=== PATIENT | female | born 1965 | race Caucasian/White ===

== ENCOUNTER 2019-05-22 07:18 | Inpatient (IN) ==
[2019-05-22 07:35] LABS: Basophils % 0.5 % (0.1-2.0); Eosinophils # 0.4 K/mm3 (0.0-0.4); Eosinophils % 4.6 % (0.1-12.0); Hematocrit 48.4 % (37.0-47.0); Lymphocytes # 4.7 K/mm3 (0.7-4.5); Lymphocytes % 52.1 % (10-50); Mean Corpuscular HGB Conc 33.2 g/dL (31.8-35.4); Mean Corpuscular Volume 93.3 fl (81-99); Mean Platelet Volume 8.4 fl (7.4-10.4); Monocytes # 0.5 K/mm3 (0.1-1.0); Monocytes % 5.5 % (1.7-9.3); Neutrophils # 3.4 K/mm3 (1.8-7.8); Neutrophils % 37.4 % (37.0-80.0); Platelet Count 328 K/mm3 (142-424); Red Blood Count 5.18 M/mm3 (4.20-5.40); Red Cell Distribution Width 12.9 % (11.5-17.5); White Blood Count 9.1 K/mm3 (4.8-10.8)
[2019-05-22 07:42] LABS: Calcium 10.2 mg/dl (8.4-10.2)
[2019-05-22 07:49] LABS: Eosinophils % 5 % (0-3); Lymphocytes % 53 % (10-50); Monocytes % 6 % (2-9); Neutrophils % 36 % (42-76); RBC Morphology Normal; Total Cells Counted 100
--- NOTE | 2019-05-22 08:31 | Emergency Department Note ---
ED Disposition Clinical Impression: NSTEMI (non-ST elevated myocardial infarction) Chest pain Qualifiers: Chest pain type: unspecified Qualified Code(s): R07.9 - Chest pain, unspecified Disposition: Admitted as Observation Condition on Discharge: Fair Time of Disposition: 11:25 - Critical Care Critical Care Time: Yes Attestation: On 05/22/19, the high probability of a clinically significant, sudden or life threatening deterioration of the following system(s) required my full and direct attention, intervention and personal management. The time I documented below is in addition to time spent performing reported procedures but includes the following listed in this critical care notation. Total Critical Care Time: 30 Vital system(s) involved:: Circulatory Failure My critical care processes included: Assessment & monitoring of V/S, Initial and Re-exams, Data Review/Interpretation, Coordinating Care, Medication Orders and management, Documentation Medical Decision Making - Jonathon Inquiry Pt receiving controlled substance: No Vital Signs: 05/22/19 07:19 05/22/19 08:32 05/22/19 08:56 Temperature 97.5 F L Temperature Source Oral Pulse Rate [Radial] 86 59 L 57 L Respiratory Rate 18 Blood Pressure [Right Arm] 154/83 H 140/89 127/95 H Blood Pressure Mean [Right Arm] 106 106 105 Blood Pressure Source [Right Arm] Automatic Cuff Automatic Cuff Blood Pressure Position [Right Arm] Sitting Sitting Sitting 02 Sat by Pulse Oximetry 100 98 99 Oxygen Delivery Method Room Air Room Air Room Air 05/22/19 09:29 Temperature Temperature Source Pulse Rate [Radial] 60 Respiratory Rate Blood Pressure [Right Arm] 123/70 Blood Pressure Mean [Right Arm] 87 Blood Pressure Source [Right Arm] Automatic Cuff Blood Pressure Position [Right Arm] Sitting 02 Sat by Pulse Oximetry 97 Oxygen Delivery Method Room Air - Lab Data Lab results reviewed: Yes: I reviewed the patient's lab results. Lab Results 05/22/19 07:26: WBC 9.1, RBC 5.18, Hgb 16.0, Hct 48.4 H, MCV 93.3, MCH 31.0, MCHC 33.2, RDW 12.9, Plt Count 328, MPV 8.4, Neut % (Auto) 37.4, Lymph % (Auto) 52.1 H, [place] % (Auto) 5.5, Eos % (Auto) 4.6, Baso % (Auto) 0.5, Neut # (Auto) 3.4, Lymph # (Auto) 4.7 H, [place] # (Auto) 0.5, Eos # (Auto) 0.4, Baso # (Auto) 0.0, Total Counted 100, Neutrophils % (Manual) 36 L, Lymphocytes % (Manual) 53 H , Monocytes % (Manual) 6, Eosinophils % (Manual) 5 H, Platelet Estimate Normal, RBC Morphology Normal 05/22/19 07:26: Sodium 139, Potassium 4.0, Chloride 101, Carbon Dioxide 28, Anion Gap 14.0, BUN 13, Creatinine 0.90, Estimated Creat Clear 71, Estimated GFR 65, Est GFR ( Amer) 79, Glucose 110 H, Calcium 10.2, Troponin I 0.02 05/22/19 07:43: Influenza Type A Ag Negative, Influenza Type B Ag Negative 05/22/19 10:08: Troponin I 2.72 H 05/22/19 10:10: Urine Color Yellow, Urine Appearance Sl cloudy, Urine pH 6.5, Ur Specific [place] 1.015, Urine Protein Negative, Urine Glucose (UA) Negative, Urine Ketones Negative, Urine Blood Negative, Urine Nitrate Negative, Urine Bilirubin Negative, Urine Urobilinogen 0.2, Ur Leukocyte Esterase Trace, Urine RBC 3-5, Urine WBC 10-20, Ur Squamous Epith Cells 10-20, Urine Bacteria 1+ Result diagrams: 05/22/19 07:26 05/22/19 07:26 Orders (Tests/Meds): ED MEDICATIONS Discontinued Medications Generic Name Dose Route Start Last Admin Trade Name Trung PRN Reason Stop Dose Admin Acetaminophen 1,000 mg 05/22/19 07:56 05/22/19 07:57 Tylenol 500mg Tablet PO 05/22/19 07:57 1,000 mg ONCE ONE Administration Aspirin 324 mg 05/22/19 10:48 05/22/19 10:52 Aspirin 81mg Chewable Tablet PO 05/22/19 10:49 324 mg ONCE ONE Administration Heparin Sodium (Porcine) 5,000 unit 05/22/19 11:01 05/22/19 11:01 Heparin Sodium 5,000 Units/Ml Vial IV 05/22/19 11:02 5,000 unit ONCE ONE Administration Ticagrelor 180 mg 05/22/19 11:01 05/22/19 11:02 Brilinta 90mg Tablet PO 05/22/19 11:02 180 mg ONCE ONE Administration ORDERS Category Date Time Status Troponin I Q3H Lab 05/22/19 13:30 Ordered Urine Culture Stat Micro 05/22/19 10:10 Received EKG Request [ECG Request by /Micah] Stat Y 05/22/19 09:56 Ordered - Radiology Data #1 Image(s): Chest Image Reviewed: Yes I reviewed the patient's radiology results R CHEST 2V CLINICAL HISTORY: pain Chest pain COMPARISON: No exams were available for comparison FINDINGS: The cardiomediastinal silhouette and pulmonary vascularity are within normal limits. The lungs are clear without infiltrates, suspicious nodules, or pleural effusions. No acute bony abnormalities. IMPRESSION: No acute findings. Dictated by: Elie Castillo MD 05/22/2019 09:57 Electronically signed by Elie Castillo MD in [place] 05/22/2019 09:57 - ECG Data Tracing #1 EKG done at 718 hours shows normal sinus rhythm with a heart rate of 78 bpm, normal P waves, normal ID interval, nonspecific ST-T changes. Downsloping of the ST segment in V2 V3. Normal axis. Tracing #2 EKG done at 1002 hrs. shows sinus bradycardia with a heart rate of 53 bpm, normal P waves, normal ID interval, normal axis, nonspecific ST-T changes. Poor R wave progression. Nonspecific ST-T changes. - Physician Consults Physician Consulted: LIZ Horan Time: 10:10 Reason -: Pt condition Comment/Response: Discussed with the cardiology on-call physician assistant activities director,Marko Batres, regarding the patient and he came to the emergency department to evaluate the patient. Plan to get the pt to the Cardiac cath. Additional Consult: Time: 10:30 Reason -: Admission, Pt condition Comment/Response: Discussed with Dr. Harrington regarding the patient and plan to get the patient admitted to the floor. - Reevaluation(s) Time: 09:30 Reevaluation #1: Patient has been stable throughout the course of stay in the emergency department. She denies having any acute pain or discomfort. Time: 10:05 Reevaluation #2: Patient has been stable while in the emergency department. Discussed the lab findings with her. Advised her that her troponin has been elevated on the second test. She seems to be having non-ST elevation NV. Plan to discuss the case with the cardiology team for cardiac cath and further evaluation. The patient is agreeable for the management plan. - ELVI Score for Non-Stemi Age of Patient: 50-59 years old Heart Rate: 70-89 bpm Systolic Blood Pressure: 140-159 mmHg Serum Creatinine: 0.80-1.19 mg/dl CHF [place] Class: I-No CHF Other Risk Factors: Elevated Cardiac Enzymes or Biomarkers Non-Stemi Risk Score: 95 General Adult HPI - General Chief complaint: PAIN Stated complaint: pain Time Seen by Provider: 05/22/19 08:19 Mode of Arrival: Ambulatory Limitations: No Limitations Description of Symptoms (Recalled from ER Triage Doc. by RN): States she is in extreme pain in her neck face back and rest of her body. states her mouth is dry. No known exposure to COVID-19 - History of Present Illness HPI narrative: 54-year-old female presents to the emergency department with chief complaint of having sudden onset generalized pain. She states she felt like she was hurting on the back of the chest and also radiating pain to the neck and to the head as well as to the upper and lower extremities. The pain was heavy and aching in nature. Pain started about 1 hours prior to arrival to the emergency department. Her blood pressure seems to be high at that time and she checked it at home. She then called her daughter and decided to come to the emergency department. She states she is feeling better right now after coming to the emergency department. The pain and discomfort was about 6-8 out of 10 earlier. Her blood pressure seems to be better in the emergency department. She has a history of hypertension. Onset (ago): hour(s) (1) Location: chest, back, upper extremity, lower extremity Severity: severe Severity scale (1-10): 7 Quality: dull Consistency: intermittent Relieving factors: none Exacerbating factors: none - Related Data Home Medications Medication Instructions Recorded Confirmed alprazolam 0.25 mg tablet 0.25 mg PO DAILY 30 Days #30 08/16/17 02/04/18 atorvastatin 10 mg tablet 10 mg PO DAILY 30 Days #30 08/16/17 02/04/18 duloxetine 60 mg capsule,delayed 60 mg PO DAILY 90 Days #90 08/16/17 02/04/18 release Aspirin [Aspir 81] 81 mg PO DAILY 02/04/18 02/04/18 Allergies Allergy/AdvReac Type Severity Reaction Status Date / Time Sulfa (Sulfonamide Allergy Verified 08/16/17 15:27 Antibiotics) [facility] History - Hepatitis A Screen Drug use history?: No High risk sexual behaviors?: No History of sexually transmitted infection?: No Currently employed?: No Childcare worker?: No Do you have indoor plumbing?: Yes Do you have electricity?: Yes Attestation statement:: This patient has been screened for Hepatitis A risk factors. I have reviewed the patient's past medical history: Yes Medical History: Reports:: Hyperlipidemia Denies:: Diabetes Mellitus Type 1, Diabetes Mellitus Type 2, Internal Pacemaker, Lung Disease, Seizures Other Medical History: Reports: Other (stroke) Other Surgeries: Yes: No Previous Surgery. No: Pacemaker - Social History Educational Level: Completed High School Smoking Status: Current every day smoker Tobacco Type: cigarettes # Packs/Day (cigarettes): 1 Alcohol Intake: never Occupational Status: other Housing: house Household Members: family Family Hx:: Cancer, Diabetes, Hypertension, Stroke ROS Obtained: Yes All systems reviewed & no additional complaints Physical Exam - General General appearance: alert, in no apparent distress, other (low mood) - Head Head exam: atraumatic, normocephalic, normal inspection - Eye Eye exam: Present: normal appearance, PERRL, EOMI - ENT ENT exam: Present: normal exam, normal oropharynx, mucous membranes moist, normal external ear exam - Neck Neck exam: Present: normal inspection, full ROM, trachea midline - Chest Chest inspection: Present: normal inspection, symmetric chest wall rise. Absent: tenderness - Respiratory Respiratory exam: Present: normal lung sounds bilaterally. Absent: respiratory distress - Cardiovascular Cardiovascular exam: Present: regular rate, normal rhythm. Absent: JVD - Abdominal Exam Abdominal exam: Present: soft, normal bowel sounds. Absent: distention, tenderness, guarding - Extremities Exam Extremities exam: Present: normal inspection, full ROM, normal capillary refill. Absent: calf tenderness - Back Exam Back exam: Present: normal inspection, full ROM. Absent: tenderness - Neurological Exam Neurological exam: Present: alert, oriented X3, CN II-XII intact - Psychiatric Psychiatric exam: Present: normal affect, normal mood - Skin Skin exam: Present: warm, dry, intact, normal color
[2019-05-22 10:17] LABS: Microscopic, Urine URINE MICROSCOPIC (MICROSCOPIC)
[2019-05-22 10:21] LABS: Appearance,Urine SL CLOUDY (Clear); Bilirubin,Urine Negative (Negative); Blood, Urine Negative (Negative); Color,Urine YELLOW (Yellow); Glucose,Urine (UA) Negative (Negative); Ketones,Urine Negative (Negative); Leukocyte Esterase,Urine TRACE (Negative); PH,Urine 6.5 (5.0-8.5); Protein,Urine Negative (Negative); Specific Gravity, Urine 1.015 (1.005-1.030); Urobilinogen,Urine 0.2 EU/dl (0.2)
[2019-05-22 10:29] LABS: Bacteria,Urine 1+ /lpf
--- NOTE | 2019-05-22 11:23 | Consult Report ---
History of Present Illness Consult date: 05/22/19 Requesting physician: Orville Harrington Consult reason: chest pain Chief complaint: Chest pain Additional Medical History:: 1. CVA, age 39 with peripheral vision affected A. workup negative per patient, daily ASA recommended 2. Tobacco use, 0.5 ppd 3. HLD, on statin 4. Allergy to sulfa 5. 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 She hasn't seen anyone regarding it recently. 6. History of colon polyps with last colonoscopy 2018. History of present illness: 54 yo WF got up to go to the bathroom this AM and noted pain in the chest, shoulders, neck and jaw with radiation into both arms. Symptoms continued for an hour prior to coming to ER. Workup in ER included troponin that was initially normal. Second troponin returned elevated and cardiology consulted. Symptoms seemed to improve after being given antacid. Currently symptoms only noted in neck and mild. Denies any N,Vomiting or diarrhea. No cough or cold symptoms. EKG's are sinus with slight ST segment depression in V3 and V4 initially of less than 1.0 mm. These have resolved on the second EKG. [facility] History Medical History: Reports:: Hyperlipidemia Denies:: Diabetes Mellitus Type 1, Diabetes Mellitus Type 2, Internal Pacemaker, Lung Disease, Seizures *Have you ever received a pneumonia vaccine?: Yes *Have you received a flu vaccine this season?: Yes Other Medical History: Reports: Other (stroke) Other Surgeries: Yes: No Previous Surgery. No: Pacemaker - *Social History Educational Level: Completed High School Smoking Status: Current every day smoker Tobacco Type: cigarettes # Packs/Day (cigarettes): 1 Alcohol Intake: never *Occupational Status:: other Housing: house Household Members: family *Travel in the last 8 weeks: None Family Hx:: Cancer, Diabetes, Hypertension, Stroke Meds Home Medications Medication Instructions Recorded Confirmed Type alprazolam 0.25 mg tablet 0.25 mg PO DAILY 30 Days #30 08/16/17 02/04/18 History atorvastatin 10 mg tablet 10 mg PO DAILY 30 Days #30 08/16/17 02/04/18 History duloxetine 60 mg capsule,delayed 60 mg PO DAILY 90 Days #90 08/16/17 02/04/18 Hi story release Aspirin [Aspir 81] 81 mg PO DAILY 02/04/18 02/04/18 History Allergies Allergy/AdvReac Type Severity Reaction Status Date / Time Sulfa (Sulfonamide Allergy Verified 08/16/17 15:27 Antibiotics) Review of Systems - Review of Systems Review of systems:: pertinent systems reviewed and negative unless documented below - *Cardiovascular Reports chest pain - *Respiratory Denies cough, Denies shortness of breath with activity - *Gastrointestinal Denies abdominal pain, Denies vomiting - *Genitourinary Denies blood in urine - *Musculoskeletal Denies joint pain, Denies back pain - *Neurologic Denies dizziness, Denies weakness Exam Vital signs and Labs for Last 24 Hours: Temp Pulse Resp BP Pulse Ox 97.5 F L 60 18 123/70 97 05/22/19 11:14 05/22/19 11:14 05/22/19 11:14 05/22/19 11:14 05/22/19 09:29 Laboratory Results - last 24 hr 05/22/19 07:26: WBC 9.1, RBC 5.18, Hgb 16.0, Hct 48.4 H, MCV 93.3, MCH 31.0, MCHC 33.2, RDW 12.9, Plt Count 328, MPV 8.4, Neut % (Auto) 37.4, Lymph % (Auto) 52.1 H, [place] % (Auto) 5.5, Eos % (Auto) 4.6, Baso % (Auto) 0.5, Neut # (Auto) 3.4, Lymph # (Auto) 4.7 H, [place] # (Auto) 0.5, Eos # (Auto) 0.4, Baso # (Auto) 0.0, Total Counted 100, Neutrophils % (Manual) 36 L, Lymphocytes % (Manual) 53 H , Monocytes % (Manual) 6, Eosinophils % (Manual) 5 H, Platelet Estimate Normal, RBC Morphology Normal 05/22/19 07:26: Sodium 139, Potassium 4.0, Chloride 101, Carbon Dioxide 28, Anion Gap 14.0, BUN 13, Creatinine 0.90, Estimated Creat Clear 71, Estimated GFR 65, Est GFR ( Amer) 79, Glucose 110 H, Calcium 10.2, Troponin I 0.02 05/22/19 07:43: Influenza Type A Ag Negative, Influenza Type B Ag Negative 05/22/19 10:08: Troponin I 2.72 H 05/22/19 10:10: Urine Color Yellow, Urine Appearance Sl cloudy, Urine pH 6.5, Ur Specific [place] 1.015, Urine Protein Negative, Urine Glucose (UA) Negative, Urine Ketones Negative, Urine Blood Negative, Urine Nitrate Negative, Urine Bilirubin Negative, Urine Urobilinogen 0.2, Ur Leukocyte Esterase Trace, Urine RBC 3-5, Urine WBC 10-20, Ur Squamous Epith Cells 10-20, Urine Bacteria 1+ I & O for Last 24 hours: Intake & Output 05/19/19 05/20/19 05/21/19 05/22/19 11:59 11:59 11:59 11:59 Weight 140 lb - *Routine HEENT Exam Head: Present: normocephalic Eye: Present: EOMI, PERRL ENT: Present: mucous membranes moist - *Routine Neck Exam Present: supple. Absent: JVD, carotid bruit - *Routine Respiratory Exam Present: CTA bilaterally. Absent: accessory muscle use, rales, rhonchi, wheezes - *Routine Cardiovascular Exam Present: RRR. Absent: murmur, gallop, rubs - *Routine Abdominal Exam Present: soft. Absent: tenderness, distended, guarding - *Routine Extremities Exam Absent: edema, calf tenderness - *Routine Neurological Exam Present: alert, oriented X3, moving all extremities Assessment and Plan (1) NSTEMI (non-ST elevated myocardial infarction) Current visit: Yes Status: Acute Category: Medical Code(s): I21.4 - Non-ST elevation (NSTEMI) myocardial infarction (2) Hyperlipidemia Current visit: Yes Status: Acute Category: Medical Code(s): E78.5 - Hyperlipidemia, unspecified (3) Tobacco use Current visit: Yes Status: Acute Category: Social Hx Code(s): Z72.0 - Tobacco use (4) Remote history of stroke Current visit: Yes Status: Acute Category: Medical Code(s): Z86.73 - Personal history of transient ischemic attack (TIA), and cerebral infarction without residual deficits - Assessment and plan all Dx Assessment and Plan for all problems:: 1. CP with elevated troponin consistent with NSTEMI. Given ASA, Brilinta, heparin and NTG paste. Proceed with C today. 2. Echo today 3. further recommendations to follow 4. Likely needs CT of head or MRI of brain to follow up on history of aneurysm.
--- NOTE | 2019-05-22 12:46 | Pharmacy Consult Notes ---
[facility] Pharmacy VTE Monitoring - Patient Demographics Admission date: 05/22/19 Report Date: 05/22/19 Time: 12:46 Allergies/Adverse Reactions: Patient Allergies Sulfa (Sulfonamide Antibiotics) Allergy (Verified 08/16/17 15:27) Height: 1.63 m Weight: 63.503 kg Patient Problems: Current Active Problems NSTEMI (non-ST elevated myocardial infarction) (Acute) Hyperlipidemia (Acute) Tobacco use (Acute) Remote history of stroke (Acute) - VTE Risk Labs: VTE Related Lab Results Hgb 16.0 g/dL (12.2-16.2) 05/22/19 07:26 Hct 48.4 % (37.0-47.0) H 05/22/19 07:26 Plt Count 328 K/mm3 (142-424) 05/22/19 07:26 BUN 13 mg/dl (7-17) 05/22/19 07:26 Creatinine 0.90 mg/dl (0.52-1.04) 05/22/19 07:26 Estimated Creat Clear 71 mL/min (50-200) 05/22/19 07:26 - Prophylaxis VTE Prophylaxis Ordered?: Yes Types of VTE Prophylaxis: TEDS Knee High, Pharmacological Location of Applied Device: Bilateral Lower Extremeties Pharmacologic Type: Other (BRILINTA) - VTE Diagnosis Confirmed Treatment or plan recommended: Continue Current Treatment
--- NOTE | 2019-05-22 13:57 | History & Physical Report ---
*Admission Date: 05/22/19 <Nancy Gillima 05/22/19 14:09> *Chief complaint: Chest pain <Nancy Gilliam 05/22/19 14:09> *History of present illness: Ms. 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 At the time she did not feel she was short of breath. She did not experience palpitations. Initial troponin I in the emergency room was normal with the second being elevated. Symptoms did improve after she was given an antacid. She had no nausea or vomiting ,cough or cold symptoms. EKG showed a sinus rhythm with a slight ST depression in V3 and V4. These did resolve on the second EKG. With the chest pain and elevated troponin consistent with a NSTEMI she was given aspirin, Brilinta, heparin and nitroglycerin paste and then had a left heart cath. Left heart cath revealed coronary artery disease and a long torturous narrow first obtuse marginal artery. Focal lesion was stented however distal to the stent was a dissection which limited distal flow. She had a normal ejection fraction with a small region wall motion abnormality. She had a normal left ventricular end-diastolic pressure. At the time of this exam patient is comfortable. She remains a little bit drowsy after the cardiac cath. <Nancy Gilliam 05/22/19 14:09> [facility] History Medical History: Reports:: Aneurysm, Hyperlipidemia Denies:: Diabetes Mellitus Type 1, Diabetes Mellitus Type 2, Internal Pacemaker, Lung Disease, Seizures <Nancy Gilliam 05/22/19 14:09> *Have you ever received a pneumonia vaccine?: Yes <Nancy Gilliam 05/22/19 14:09> *Have you received a flu vaccine this season?: Yes <Nancy Gilliam 05/22/19 14:09> Other Medical History: Reports: Other (stroke) <Nancy Gilliam 05/22/19 14:09> Other Surgeries: Yes: No Previous Surgery. No: Pacemaker <GilliamNancy 05/22/19 14:09> - *Social History Educational Level: Completed High School <Nancy Gilliam 05/22/19 14:09> Smoking Status: Current every day smoker <Nancy Gilliam 05/22/19 14:09> Tobacco Type: cigarettes <Nancy Gilliam 05/22/19 14:09> # Packs/Day (cigarettes): 1 <Nancy Gilliam 05/22/19 14:09> Alcohol Intake: never <Nancy Gilliam 05/22/19 14:09> *Occupational Status:: other <Nancy Gilliam 05/22/19 14:09> Housing: house <Nancy Gilliam 05/22/19 14:09> Household Members: family <Nancy Gilliam 05/22/19 14:09> *Travel in the last 8 weeks: None <Nancy Gilliam 05/22/19 14:09> Family Hx:: Cancer, Coronary Artery Disease, Diabetes, Hypertension, Stroke <Nancy Gilliam 05/22/19 14:09> Review of Systems - Constitutional Denies fever(s), Denies lack of energy <Nancy Gilliam 05/22/19 14:09> - Eyes Denies change in vision <Nancy Gilliam 05/22/19 14:09> - ENT Denies ear pain, Denies headache(s), Denies sore throat <Nancy Gilliam 05/22/19 14:09> - *Cardiovascular Reports chest pain, Reports chest pain at rest, Reports radiating jaw, neck or arm pain, Denies shortness of breath, Denies irregular heart rhythm, Denies rapid, pounding, or irregular heartbeat, Denies fast heart rate <Nancy Gilliam 05/22/19 14:09> - *Respiratory Denies chest congestion, Denies cough, Denies shortness of breath, Denies coughing up blood <Nancy Gilliam 05/22/19 14:09> - *Gastrointestinal Reports belching, Reports heartburn, Denies abdominal pain, Denies change in bowel habits, Denies change in stools, Denies constipation, Denies bright, red blood in stools, Denies nausea, Denies vomiting <Nancy Gilliam 05/22/19 14:09> - *Genitourinary Denies difficulty urinating <Nancy Gilliam - 05/22/19 14:09> - *Musculoskeletal Denies joint pain, Denies muscle weakness <Nancy Gilliam - 05/22/19 14:09> - *Neurologic Denies dizziness, Denies weakness <Nancy Gilliam - 05/22/19 14:09> Meds Home Medications Medication Instructions Recorded Confirmed Type alprazolam 0.25 mg tablet 0.25 mg PO HSP PRN 30 Days #30 08/16/17 05/22/19 History atorvastatin 10 mg tablet 10 mg PO HS 30 Days #30 08/16/17 05/22/19 History duloxetine 60 mg capsule,delayed 60 mg PO HS 90 Days #90 08/16/17 05/22/19 History release Aspirin [Aspir 81] 81 mg PO HS 02/04/18 05/22/19 History Montelukast Sodium 10 mg PO HS 05/22/19 05/22/19 History <LenLázaroOrville - 05/22/19 18:26> Allergies Allergy/AdvReac Type Severity Reaction Status Date / Time Sulfa (Sulfonamide Allergy Verified 05/22/19 14:18 Antibiotics) <LenOrville - 05/22/19 18:26> Exam Vital signs and Labs for Last 24 Hours: Temp Pulse Resp BP Pulse Ox 97.9 F 60 18 106/63 L 98 05/22/19 18:09 05/22/19 18:09 05/22/19 18:09 05/22/19 18:09 05/22/19 18:09 Laboratory Results - last 24 hr 05/22/19 07:26: WBC 9.1, RBC 5.18, Hgb 16.0, Hct 48.4 H, MCV 93.3, MCH 31.0, MCH C 33.2, RDW 12.9, Plt Count 328, MPV 8.4, Neut % (Auto) 37.4, Lymph % (Auto) 52.1 H, [place] % (Auto) 5.5, Eos % (Auto) 4.6, Baso % (Auto) 0.5, Neut # (Auto) 3.4, Lymph # (Auto) 4.7 H, [place] # (Auto) 0.5, Eos # (Auto) 0.4, Baso # (Auto) 0.0, Total Counted 100, Neutrophils % (Manual) 36 L, Lymphocytes % (Manual) 53 H , Monocytes % (Manual) 6, Eosinophils % (Manual) 5 H, Platelet Estimate Normal, RBC Morphology Normal 05/22/19 07:26: Sodium 139, Potassium 4.0, Chloride 101, Carbon Dioxide 28, Anion Gap 14.0, BUN 13, Creatinine 0.90, Estimated Creat Clear 71, Estimated GFR 65, Est GFR ( Amer) 79, Glucose 110 H, Calcium 10.2, Troponin I 0.02 05/22/19 07:26: D-Dimer < 100 05/22/19 07:43: Influenza Type A Ag Negative, Influenza Type B Ag Negative 05/22/19 10:08: Troponin I 2.72 H 05/22/19 10:10: Urine Color Yellow, Urine Appearance Sl cloudy, Urine pH 6.5, Ur Specific [place] 1.015, Urine Protein Negative, Urine Glucose (UA) Negative, Urine Ketones Negative, Urine Blood Negative, Urine Nitrate Negative, Urine Bilirubin Negative, Urine Urobilinogen 0.2, Ur Leukocyte Esterase Trace, Urine RBC 3-5, Urine WBC 10-20, Ur Squamous Epith Cells 10-20, Urine Bacteria 1+ 05/22/19 11:22: Activated Clotting Time 241 H* 05/22/19 11:40: Activated Clotting Time 245 H* <Orville Harrington - 05/22/19 18:26> Temp Pulse Resp BP Pulse Ox 98.7 F 54 L 16 133/71 95 05/22/19 11:23 05/22/19 13:05 05/22/19 13:05 05/22/19 13:05 05/22/19 13:05 Laboratory Results - last 24 hr 05/22/19 07:26: WBC 9.1, RBC 5.18, Hgb 16.0, Hct 48.4 H, MCV 93.3, MCH 31.0, MCHC 33.2, RDW 12.9, Plt Count 328, MPV 8.4, Neut % (Auto) 37.4, Lymph % (Auto) 52.1 H, [place] % (Auto) 5.5, Eos % (Auto) 4.6, Baso % (Auto) 0.5, Neut # (Auto) 3.4, Lymph # (Auto) 4.7 H, [place] # (Auto) 0.5, Eos # (Auto) 0.4, Baso # (Auto) 0.0, Total Counted 100, Neutrophils % (Manual) 36 L, Lymphocytes % (Manual) 53 H , Monocytes % (Manual) 6, Eosinophils % (Manual) 5 H, Platelet Estimate Normal, RBC Morphology Normal 05/22/19 07:26: Sodium 139, Potassium 4.0, Chloride 101, Carbon Dioxide 28, Anion Gap 14.0, BUN 13, Creatinine 0.90, Estimated Creat Clear 71, Estimated GFR 65, Est GFR ( Amer) 79, Glucose 110 H, Calcium 10.2, Troponin I 0.02 05/22/19 07:26: D-Dimer < 100 05/22/19 07:43: Influenza Type A Ag Negative, Influenza Type B Ag Negative 05/22/19 10:08: Troponin I 2.72 H 05/22/19 10:10: Urine Color Yellow, Urine Appearance Sl cloudy, Urine pH 6.5, Ur Specific [place] 1.015, Urine Protein Negative, Urine Glucose (UA) Negative, Urine Ketones Negative, Urine Blood Negative, Urine Nitrate Negative, Urine Bili sparks Negative, Urine Urobilinogen 0.2, Ur Leukocyte Esterase Trace, Urine RBC 3-5, Urine WBC 10-20, Ur Squamous Epith Cells 10-20, Urine Bacteria 1+ <Nancy Gilliam - 05/22/19 14:09> I & O for Last 24 hours: Intake & Output 05/19/19 05/20/19 05/21/19 05/22/19 23:59 23:59 23:59 23:59 Intake Total 0 / 0 Balance 0 / 0 Weight 140 lb 0.002 oz <Orville Harrington - 05/22/19 18:26> Intake & Output 05/20/19 05/21/19 05/22/19 05/23/19 11:59 11:59 11:59 11:59 Weight 140 lb <Nancy Gilliam - 05/22/19 14:09> Radiology Reports for the Last 24 Hours: Chest x-ray 05/22/2019 IMPRESSION: No acute findings. Heart cath 05/22/2019 IMPRESSION Coronary artery disease and a long tortuous narrow first obtuse marginal artery in which the focal lesion was stented however distal to the stent was a dissection which limited distal flow Normal ejection fraction with small regional wall motion abnormality Normal left ventricular end-diastolic pressure PLAN 1. Brilinta and aspirin for 1 year 2. Beta-blockers YASMANI inhibitors 3. Patient should remain in the hospital for 48 hours. After 48 hours an echocardiogram should be obtained 4. Supportive care 5. PRN nitroglycerin 6. PRN morphine should chest pain develop 7. Avoidance of tobacco products <[facility] 05/22/19 14:09> - Constitutional no acute distress <[facility] 05/22/19 14:09> Comments: Sleepy <[facility] 05/22/19 14:09> - *Routine HEENT Exam Head: Present: normocephalic, atraumatic <[facility] 05/22/19 14:09> Eye: Present: PERRL. Absent: conjunctival icterus, scleral injection <[facility] 05/22/19 14:09> ENT: Present: mucous membranes moist, oropharynx clear, nares patent, TM's clear bilaterally <[facility] 05/22/19 14:09> - *Routine Neck Exam Present: supple. Absent: carotid bruit, lymphadenopathy, thyromegaly <[facility] 05/22/19 14:09> - *Routine Respiratory Exam Present: CTA bilaterally (Anteriorly and posteriorly) <[facility] 05/22/19 14:09> - *Routine Cardiovascular Exam Present: RRR <[facility] 05/22/19 14:09> - *Routine Abdominal Exam Present: soft, normoactive bowel sounds. Absent: tenderness, distended <[facility] 05/22/19 14:09> - *Routine Extremities Exam Absent: edema, calf tenderness <[facility] 05/22/19 14:09> - *Routine Neurological Exam Present: alert, oriented X3 <[facility] 05/22/19 14:09> Assessment and Plan (1) NSTEMI (non-ST elevated myocardial infarction) Current visit: Yes Status: Acute Category: Medical Code(s): I21.4 - Non-ST elevation (NSTEMI) myocardial infarction (2) Hyperlipidemia Current visit: Yes Status: Acute Category: Medical Code(s): E78.5 - Hyperlipidemia, unspecified (3) Tobacco use Current visit: Yes Status: Acute Category: Social Hx Code(s): Z72.0 - Tobacco use (4) Remote history of stroke Current visit: Yes Status: Acute Category: Medical Code(s): Z86.73 - Personal history of transient ischemic attack (TIA), and cerebral infarction without residual deficits (5) CAD (coronary artery disease), [place] coronary artery Current visit: Yes Status: Acute Category: Medical Code(s): I25.10 - Atherosclerotic heart disease of [place] coronary artery without angina pectoris <Orville Harrington - 05/22/19 18:26> (1) NSTEMI (non-ST elevated myocardial infarction) Current visit: Yes Status: Acute Category: Medical Code(s): I21.4 - Non-ST elevation (NSTEMI) myocardial infarction (2) Hyperlipidemia Current visit: Yes Status: Acute Category: Medical Code(s): E78.5 - Hyperlipidemia, unspecified (3) Tobacco use Current visit: Yes Status: Acute Category: Social Hx Code(s): Z72.0 - Tobacco use (4) Remote history of stroke Current visit: Yes Status: Acute Category: Medical Code(s): Z86.73 - Personal history of transient ischemic attack (TIA), and cerebral infarction without residual deficits <Nancy Gilliam - 05/22/19 13:51> - Assessment and plan all Dx Assessment and Plan for all problems:: Saw patient, agree with above note. <Orville Harrington 05/22/19 18:26> Nitropatch added at patient request. We will continue to monitor. Cardiac meds as ordered. <Nancy Gilliam - 05/22/19 14:09>
[2019-05-23 06:51] LABS: Eosinophils # 0.3 K/mm3 (0.0-0.4); Monocytes # 0.4 K/mm3 (0.1-1.0); Neutrophils # 4.6 K/mm3 (1.8-7.8); Red Cell Distribution Width 13.1 % (11.5-17.5); White Blood Count 7.2 K/mm3 (4.8-10.8)
[2019-05-23 07:00] LABS: Basophils # 0.1 K/mm3 (0-0.2); Basophils % 0.7 % (0.1-2.0); Eosinophils % 4.4 % (0.1-12.0); Hematocrit 43.2 % (37.0-47.0); Lymphocytes # 1.9 K/mm3 (0.7-4.5); Lymphocytes % 26.3 % (10-50); Mean Corpuscular HGB Conc 33.4 g/dL (31.8-35.4); Mean Corpuscular Volume 94.5 fl (81-99); Mean Platelet Volume 8.6 fl (7.4-10.4); Monocytes % 5.1 % (1.7-9.3); Neutrophils % 63.5 % (37.0-80.0); Platelet Count 275 K/mm3 (142-424); Red Blood Count 4.57 M/mm3 (4.20-5.40)
[2019-05-23 07:01] LABS: Hemoglobin 14.4 g/dL (12.2-16.2)
[2019-05-23 07:03] LABS: Anion Gap 9.1 mEq/L (5-15)
[2019-05-23 07:04] LABS: Calcium 9.3 mg/dl (8.4-10.2)
--- NOTE | 2019-05-23 08:16 | Progress Note ---
Subjective Date: 05/23/19 Time: 08:10 Principal diagnosis: NSTEMI Interval history: 54 yo WF in bed in NAD. No chest pain overnight. Breathing comfortably. Telemetry is sinus without arrythmias. Reviewed [facility] results and questions answered. Exam Vital signs and Labs for Last 24 Hours: Temp Pulse Resp BP Pulse Ox 97.9 F 73 16 117/55 L 97 05/23/19 06:40 05/23/19 06:40 05/23/19 06:40 05/23/19 06:40 05/23/19 06:40 Laboratory Results - last 24 hr 05/22/19 07:26: D-Dimer < 100 05/22/19 10:08: Troponin I 2.72 H 05/22/19 10:10: Urine Color Yellow, Urine Appearance Sl cloudy, Urine pH 6.5, Ur Specific [place] 1.015, Urine Protein Negative, Urine Glucose (UA) Negative, Urine Ketones Negative, Urine Blood Negative, Urine Nitrate Negative, Urine Bili sparks Negative, Urine Urobilinogen 0.2, Ur Leukocyte Esterase Trace, Urine RBC 3-5, Urine WBC 10-20, Ur Squamous Epith Cells 10-20, Urine Bacteria 1+ 05/22/19 11:22: Activated Clotting Time 241 H* 05/22/19 11:40: Activated Clotting Time 245 H* 05/23/19 05:48: WBC 7.2, RBC 4.57, Hgb 14.4, Hct 43.2, MCV 94.5, MCH 31.5 H, MCHC 33.4, RDW 13.1, Plt Count 275, MPV 8.6, Neut % (Auto) 63.5, Lymph % (Auto) 26.3, [place] % (Auto) 5.1, Eos % (Auto) 4.4, Baso % (Auto) 0.7, Neut # (Auto) 4.6, Lymph # (Auto) 1.9, [place] # (Auto) 0.4, Eos # (Auto) 0.3, Baso # (Auto) 0.1 05/23/19 05:48: Sodium 137, Potassium 4.1, Chloride 106, Carbon Dioxide 26, Anion Gap 9.1, BUN 11, Creatinine 0.80, Estimated Creat Clear 84, Estimated GFR 74, Est GFR ( Amer) 90, Glucose 97, Calcium 9.3 I & O for Last 24 hours: Intake & Output 05/20/19 05/21/19 05/22/19 05/23/19 11:59 11:59 11:59 11:59 Intake Total 700 / 700 Output Total 1900 / 1900 Balance -1200 / -1200 Weight 140 lb 0.002 oz 147 lb Microbiology Reports for the Last 24 Hours: Microbiology 05/22/19 10:10 Urine,Clean Catch Urine Culture - Preliminary - *Routine HEENT Exam Head: Present: normocephalic Eye: Present: EOMI, PERRL ENT: Present: mucous membranes moist - *Routine Respiratory Exam Present: CTA bilaterally. Absent: accessory muscle use, rales, rhonchi, wheezes - *Routine Cardiovascular Exam Present: RRR. Absent: murmur, gallop, rubs - *Routine Extremities Exam Absent: edema, calf tenderness - *Routine Neurological Exam Present: alert, oriented X3, moving all extremities Progress Note: A&P (1) NSTEMI (non-ST elevated myocardial infarction) Status: Acute Current Visit: Yes (2) Hyperlipidemia Status: Acute Current Visit: Yes (3) Tobacco use Status: Acute Current Visit: Yes (4) Remote history of stroke Status: Acute Current Visit: Yes (5) CAD (coronary artery disease), [place] coronary artery Status: Acute Current Visit: Yes Assessment and Plan for All Diagnoses:: 1. NSTEMI with OM MORENA and subsequent dissection. Continue DAPT with ASA and brilinta. Echo to evaluate LVEF and will begin YASMANI and BB as BP tolerates for cardiac remodeling prevention. Continue to monitor for 48 hrs total before discharge home. 2. 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 No evaluation in several years per patient. CT of head with contrast to evaluate. 3. Tobacco use, nicotine patch in place 4. HLD, on statin therapy 5. Remote history of CVA
--- NOTE | 2019-05-23 09:01 | Progress Note ---
<Nancy Gilliam - Last Filed: 05/23/19 08:58> Internal Medicine - PN: Subj *Date: 05/23/19 *Time: 08:58 Interval history: Patient denies chest pain and shortness of breath. She has been up to the bathroom several times without difficulty. She is eating without problems. She did not sleep well but states she slept all day yesterday. She is voiding QS. Bowels have not moved. Cardiac cath results as below: IMPRESSION Coronary artery disease and a long tortuous narrow first obtuse marginal artery in which the focal lesion was stented however distal to the stent was a dissection which limited distal flow Normal ejection fraction with small regional wall motion abnormality Normal left ventricular end-diastolic pressure PLAN 1. Brilinta and aspirin for 1 year 2. Beta-blockers YASMANI inhibitors 3. Patient should remain in the hospital for 48 hours. After 48 hours an echocardiogram should be obtained 4. Supportive care 5. PRN nitroglycerin 6. PRN morphine should chest pain develop 7. Avoidance of tobacco products 8. Cardiac rehabilitation Exam Vital signs and Labs for Last 24 Hours: Temp Pulse Resp BP Pulse Ox 97.9 F 73 16 117/55 L 97 05/23/19 06:40 05/23/19 06:40 05/23/19 06:40 05/23/19 06:40 05/23/19 06:40 Laboratory Results - last 24 hr 05/22/19 07:26: D-Dimer < 100 05/22/19 10:08: Troponin I 2.72 H 05/22/19 10:10: Urine Color Yellow, Urine Appearance Sl cloudy, Urine pH 6.5, Ur Specific [place] 1.015, Urine Protein Negative, Urine Glucose (UA) Negative, Urine Ketones Negative, Urine Blood Negative, Urine Nitrate Negative, Urine Bilirubin Negative, Urine Urobilinogen 0.2, Ur Leukocyte Esterase Trace, Urine RBC 3-5, Urine WBC 10-20, Ur Squamous Epith Cells 10-20, Urine Bacteria 1+ 05/22/19 11:22: Activated Clotting Time 241 H* 05/22/19 11:40: Activated Clotting Time 245 H* 05/23/19 05:48: WBC 7.2, RBC 4.57, Hgb 14.4, Hct 43.2, MCV 94.5, MCH 31.5 H, MCHC 33.4, RDW 13.1, Plt Count 275, MPV 8.6, Neut % (Auto) 63.5, Lymph % (Auto) 26.3, [place] % (Auto) 5.1, Eos % (Auto) 4.4, Baso % (Auto) 0.7, Neut # (Auto) 4.6, Lymph # (Auto) 1.9, [place] # (Auto) 0.4, Eos # (Auto) 0.3, Baso # (Auto) 0.1 05/23/19 05:48: Sodium 137, Potassium 4.1, Chloride 106, Carbon Dioxide 26, Anion Gap 9.1, BUN 11, Creatinine 0.80, Estimated Creat Clear 84, Estimated GFR 74, Est GFR ( Amer) 90, Glucose 97, Calcium 9.3 I & O for Last 24 hours: Intake & Output 05/20/19 05/21/19 05/22/19 05/23/19 11:59 11:59 11:59 11:59 Intake Total 700 / 700 Output Total 1900 / 1900 Balance -1200 / -1200 Weight 140 lb 0.002 oz 147 lb Microbiology Reports for the Last 24 Hours: Microbiology 05/22/19 10:10 Urine,Clean Catch Urine Culture - Preliminary - Constitutional no acute distress - *Routine Respiratory Exam Present: CTA bilaterally (Anteriorly and posteriorly) - *Routine Cardiovascular Exam Present: RRR Comments: Monitor shows sinus rhythm - *Routine Abdominal Exam Present: soft, normoactive bowel sounds. Absent: tenderness, distended - *Routine Extremities Exam Present: pulses intact. Absent: edema, calf tenderness - *Routine Neurological Exam Present: alert, oriented X3 Assessment and Plan (1) NSTEMI (non-ST elevated myocardial infarction) Current visit: Yes Status: Acute Category: Medical Code(s): I21.4 - Non-ST elevation (NSTEMI) myocardial infarction (2) Hyperlipidemia Current visit: Yes Status: Acute Category: Medical Code(s): E78.5 - Hyperlipidemia, unspecified (3) Tobacco use Current visit: Yes Status: Acute Category: Social Hx Code(s): Z72.0 - Tobacco use (4) Remote history of stroke Current visit: Yes Status: Acute Category: Medical Code(s): Z86.73 - Personal history of transient ischemic attack (TIA), and cerebral infarction without residual deficits (5) CAD (coronary artery disease), [place] coronary artery Current visit: Yes Status: Acute Category: Medical Code(s): I25.10 - Atherosclerotic heart disease of [place] coronary artery without angina pectoris - Assessment and plan all Dx Assessment and Plan for all problems:: Patient plans to not smoke. Medication changes as per cardiology. We will continue to monitor. <Orville Harrington - Last Filed: 05/23/19 09:49> Internal Medicine - PN: Subj *Date: 05/23/19 *Time: 09:49 Exam Vital signs and Labs for Last 24 Hours: Temp Pulse Resp BP Pulse Ox 98.5 F 62 18 122/69 95 05/23/19 08:00 05/23/19 09:00 05/23/19 09:00 05/23/19 09:00 05/23/19 09:00 Laboratory Results - last 24 hr 05/22/19 07:26: D-Dimer < 100 05/22/19 10:08: Troponin I 2.72 H 05/22/19 10:10: Urine Color Yellow, Urine Appearance Sl cloudy, Urine pH 6.5, Ur Specific [place] 1.015, Urine Protein Negative, Urine Glucose (UA) Negative, Urine Ketones Negative, Urine Blood Negative, Urine Nitrate Negative, Urine Bilirubin Negative, Urine Urobilinogen 0.2, Ur Leukocyte Esterase Trace, Urine RBC 3-5, Urine WBC 10-20, Ur Squamous Epith Cells 10-20, Urine Bacteria 1+ 05/22/19 11:22: Activated Clotting Time 241 H* 05/22/19 11:40: Activated Clotting Time 245 H* 05/23/19 05:48: WBC 7.2, RBC 4.57, Hgb 14.4, Hct 43.2, MCV 94.5, MCH 31.5 H, MCHC 33.4, RDW 13.1, Plt Count 275, MPV 8.6, Neut % (Auto) 63.5, Lymph % (Auto) 26.3, [place] % (Auto) 5.1, Eos % (Auto) 4.4, Baso % (Auto) 0.7, Neut # (Auto) 4.6, Lymph # (Auto) 1.9, [place] # (Auto) 0.4, Eos # (Auto) 0.3, Baso # (Auto) 0.1 05/23/19 05:48: Sodium 137, Potassium 4.1, Chloride 106, Carbon Dioxide 26, Anion Gap 9.1, BUN 11, Creatinine 0.80, Estimated Creat Clear 84, Estimated GFR 74, Est GFR ( Amer) 90, Glucose 97, Calcium 9.3 I & O for Last 24 hours: Intake & Output 05/20/19 05/21/19 05/22/19 05/23/19 23:59 23:59 23:59 23:59 Intake Total 0 / 460 700 / 700 Output Total 1000 / 1000 900 / 900 Balance -1000 / -540 -200 / -200 Weight 140 lb 0.002 oz 147 lb Microbiology Reports for the Last 24 Hours: Microbiology 05/22/19 10:10 Urine,Clean Catch Urine Culture - Preliminary Assessment and Plan (1) NSTEMI (non-ST elevated myocardial infarction) Current visit: Yes Status: Acute Category: Medical Code(s): I21.4 - Non-ST elevation (NSTEMI) myocardial infarction (2) Hyperlipidemia Current visit: Yes Status: Acute Category: Medical Code(s): E78.5 - Hyperlipidemia, unspecified (3) Tobacco use Current visit: Yes Status: Acute Category: Social Hx Code(s): Z72.0 - Tobacco use (4) Remote history of stroke Current visit: Yes Status: Acute Category: Medical Code(s): Z86.73 - Personal history of transient ischemic attack (TIA), and cerebral infarction without residual deficits (5) CAD (coronary artery disease), [place] coronary artery Current visit: Yes Status: Acute Category: Medical Code(s): I25.10 - Atherosclerotic heart disease of [place] coronary artery without angina pectoris - Assessment and plan all Dx Assessment and Plan for all problems:: Saw patient, agree with above note.
--- NOTE | 2019-05-24 08:33 | Progress Note ---
Internal Medicine - PN: Subj *Date: 05/24/19 *Time: 08:30 Interval history: Patient with no new complaints today, did not sleep well last night. Exam Vital signs and Labs for Last 24 Hours: Temp Pulse Resp BP Pulse Ox 98.3 F 67 20 106/46 L 95 05/24/19 08:00 05/24/19 08:00 05/24/19 08:00 05/24/19 08:00 05/24/19 08:00 I & O for Last 24 hours: Intake & Output 05/21/19 05/22/19 05/23/19 05/24/19 23:59 23:59 23:59 23:59 Intake Total 0 / 460 1180 / 1180 480 / 480 Output Total 1000 / 1000 1600 / 1600 Balance -1000 / -540 -420 / -420 480 / 480 Weight 140 lb 0.002 oz 147 lb 132 lb 7 oz Microbiology Reports for the Last 24 Hours: Microbiology 05/22/19 10:10 Urine,Clean Catch Urine Culture - Final Multiple organisms, suggests contamination. - Constitutional no acute distress - *Routine HEENT Exam Head: Present: normocephalic Eye: Present: EOMI ENT: Present: mucous membranes moist - *Routine Neck Exam Present: supple. Absent: lymphadenopathy - *Routine Respiratory Exam Present: CTA bilaterally - *Routine Cardiovascular Exam Present: RRR - *Routine Abdominal Exam Present: soft, normoactive bowel sounds. Absent: tenderness - *Routine Extremities Exam Absent: cyanosis, clubbing, edema - *Routine Skin Exam Present: warm. Absent: rash - *Routine Neurological Exam Present: alert, oriented X3 Assessment and Plan (1) NSTEMI (non-ST elevated myocardial infarction) Current visit: Yes Status: Acute Category: Medical Code(s): I21.4 - Non-ST elevation (NSTEMI) myocardial infarction (2) Hyperlipidemia Current visit: Yes Status: Acute Category: Medical Code(s): E78.5 - Hyperlipidemia, unspecified (3) Tobacco use Current visit: Yes Status: Acute Category: Social Hx Code(s): Z72.0 - Tobacco use (4) Remote history of stroke Current visit: Yes Status: Acute Category: Medical Code(s): Z86.73 - Personal history of transient ischemic attack (TIA), and cerebral infarction without residual deficits (5) CAD (coronary artery disease), [place] coronary artery Current visit: Yes Status: Acute Category: Medical Code(s): I25.10 - Atherosclerotic heart disease of [place] coronary artery without angina pectoris - Assessment and plan all Dx Assessment and Plan for all problems:: Plan to check Echo today, possible home later today.
--- NOTE | 2019-05-24 09:36 | Progress Note ---
Subjective Date: 05/24/19 Time: 09:32 Principal diagnosis: NSTEMI Interval history: This is a 54-year-old white female who was admitted to the hospital for non-ST elevation myocardial infarction. She did undergo left cardiac catheterization and had stenting to an obtuse marginal artery with subsequent dissection of the artery. The patient is on dual antiplatelet therapy with Brilinta and aspirin. The patient was kept in the hospital for 48 hours post dissection and her hospital stay has been unremarkable. This morning she denies any chest pain or pressure. She denies any shortness of breath or edema. She denies any fever, chills, nausea, vomiting, diarrhea, PND or orthopnea. She denies any fevers or cough. Exam Vital signs and Labs for Last 24 Hours: Temp Pulse Resp BP Pulse Ox 98.3 F 67 20 106/46 L 95 05/24/19 08:00 05/24/19 08:00 05/24/19 08:00 05/24/19 08:00 05/24/19 08:00 I & O for Last 24 hours: Intake & Output 05/21/19 05/22/19 05/23/19 05/24/19 23:59 23:59 23:59 23:59 Intake Total 0 / 460 1180 / 1180 480 / 480 Output Total 1000 / 1000 1600 / 1600 Balance -1000 / -540 -420 / -420 480 / 480 Weight 140 lb 0.002 oz 147 lb 132 lb 7 oz Microbiology Reports for the Last 24 Hours: Microbiology 05/22/19 10:10 Urine,Clean Catch Urine Culture - Final Multiple organisms, suggests contamination. Narrative: Telemetry strip shows sinus rhythm with a rate of 57. - Constitutional no acute distress, average body habitus - *Routine HEENT Exam Head: Present: normocephalic, atraumatic Eye: Present: EOMI, PERRL ENT: Present: mucous membranes moist - *Routine Neck Exam Present: supple, full ROM, normal carotid upstroke. Absent: JVD, carotid bruit, lymphadenopathy - *Routine Respiratory Exam Present: CTA bilaterally - *Routine Cardiovascular Exam Present: RRR, Normal S1, Normal S2. Absent: murmur - *Routine Abdominal Exam Present: soft, normoactive bowel sounds. Absent: tenderness, distended, rebound - *Routine Extremities Exam Present: full ROM, pulses intact, normal capillary refill. Absent: cyanosis, clubbing, edema - *Routine Skin Exam Present: intact, warm. Absent: erythema, rash - *Routine Neurological Exam Present: alert, oriented X3, CN II-XII intact. Absent: sensory deficit, motor deficit Progress Note: A&P (1) NSTEMI (non-ST elevated myocardial infarction) Status: Acute Current Visit: Yes (2) CAD (coronary artery disease), [place] coronary artery Status: Acute Current Visit: Yes (3) Hyperlipidemia Status: Acute Current Visit: Yes (4) Tobacco use Status: Acute Current Visit: Yes (5) Remote history of stroke Status: Acute Current Visit: Yes Assessment and Plan for All Diagnoses:: Plan: 1. The patient was admitted to the hospital secondary to a non-STEMI and underwent left cardiac catheterization with a drug-eluting stent to the obtuse marginal. The patient had a subsequent dissection and has been in the hospital since that time for 48-hour observation. The patient's hospital stay has been unremarkable. 2. The patient will remain on dual antiplatelet therapy with Brilinta and aspirin. 3. The patient did have an echocardiogram this morning. This is currently pending. As long as her echocardiogram is normal then she will be able to go home today around 1 PM as her 48 hours will be up at that time. 4. Once the patient is ready for discharge home, she will need to go home on dual antiplatelet therapy with Brilinta and aspirin as well as metoprolol and lisinopril which she has already been started on in the hospital. She will also need to be on statin therapy which she is already on as well. 5. Coronary artery disease is present and likely stable. 6. Her blood pressure is acceptable. 7. Her LDL goal is less than 55. She is on high intensity statin. 8. Tobacco cessation is highly advised and counseled. 9. 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 CT of the brain showed nothing acute. The CT angiogram of her brain can be completed on an outpatient basis. 10. Further recommendations will be made pending the patient's response to treatment and the results of her echocardiogram later today. Thank you for the opportunity to help participate in the care of this patient.
--- NOTE | 2019-05-24 15:59 | Discharge Summary ---
General - General Admission date:: 05/22/19 Discharge date: 05/24/19 HPI HPI: Ms. Couch is a 54-year-old female with a history of previous stroke/aneurysm behind her left eye, tobacco use disorder, hyperlipidemia, who presented to [facility] emergency room after awakening with severe chest pain radiating into the shoulders, neck, jaw and down both arms. At the time she did not feel she was short of breath. She did not experience palpitations. Initial troponin I in the emergency room was normal with the second being elevated. Symptoms did improve after she was given an antacid. She had no nausea or vomiting ,cough or cold symptoms. EKG showed a sinus rhythm with a slight ST depression in V3 and V4. These did resolve on the second EKG. With the chest pain and elevated troponin consistent with a NSTEMI, she was given aspirin, Brilinta, heparin and nitroglycerin paste and then had a left heart cath. Left heart cath revealed coronary artery disease and a long torturous narrow first obtuse marginal artery. Focal lesion was stented however distal to the stent was a dissection which limited distal flow. She had a normal ejection fraction with a small region wall motion abnormality. She had a normal left ventricular end-diastolic pressure. At the time of this exam patient is comfortable. She remains a little bit drowsy after the cardiac cath. Hospital Course Hospital Course: A nitro patch was added at the patient's request. She had no further chest pain and was breathing comfortably. Telemetry showed sinus rhythm without arrhythmias. Cardiology felt she should continue aspirin and Brilinta. They ordered an echo and started her on an YASMANI and a beta-annemarie. They wanted to monitor her for 48 hours total before discharge home. The patient had no new co mplaints. An echo was done and the preliminary was normal. Cardiology did feel she could be discharged and will need to follow-up with them in the office. Objective Vital signs: Temp Pulse Resp BP Pulse Ox 98.2 F 57 L 16 106/64 L 94 L 05/24/19 12:00 05/24/19 12:00 05/24/19 12:00 05/24/19 12:00 05/24/19 12:00 Narrative: - Constitutional no acute distress Comments: Sleepy - *Routine HEENT Exam Head: Present: normocephalic, atraumatic Eye: Present: PERRL. Absent: conjunctival icterus, scleral injection ENT: Present: mucous membranes moist, oropharynx clear, nares patent, TM's clear bilaterally - *Routine Neck Exam Present: supple. Absent: carotid bruit, lymphadenopathy, thyromegaly - *Routine Respiratory Exam Present: CTA bilaterally (Anteriorly and posteriorly) - *Routine Cardiovascular Exam Present: RRR - *Routine Abdominal Exam Present: soft, normoactive bowel sounds. Absent: tenderness, distended - *Routine Extremities Exam Absent: edema, calf tenderness - *Routine Neurological Exam Present: alert, oriented X3 DS: Diagnosis - Discharge Diagnosis (1) NSTEMI (non-ST elevated myocardial infarction) Status: Acute (2) CAD (coronary artery disease), [place] coronary artery Status: Acute (3) Hyperlipidemia Status: Acute (4) Tobacco use Status: Acute (5) Remote history of stroke Status: Acute Discharge Plan - Patient Discharge Instructions ACTIVITY: Limited activity, No heavy lifting DIET: cardiac Patient Instructions: DI for Heart Attack, DI for Cardiac Catheterization, DI for Surgical Site Infection, How to Quit Smoking, Ticagrelor - Follow up Plan Follow up with: Orville Harrington MD [Staff Physician] - 06/01/19 11:15 am (please arrive 15 minutes early for appointment with for paperwork please bring insurance card ) Jose Carlos Man MD [Staff Physician] - 05/29/19 9:00 am Unknown provider or service follow up:: 05/24/19 12:29 Keep PCP appt Disposition: Home, Self-Snf Medications: Home Medications Medication Instructions Recorded Confirmed Type alprazolam 0.25 mg tablet 0.25 mg PO HSP PRN 30 Days #30 08/16/17 05/23/19 History duloxetine 60 mg capsule,delayed 60 mg PO HS 90 Days #90 08/16/17 05/23/19 History release Aspirin [Aspir 81] 81 mg PO HS 02/04/18 05/23/19 History Montelukast Sodium 10 mg PO HS 05/22/19 05/22/19 History Atorvastatin Calcium [Lipitor 40mg 80 mg PO HS #30 tab 05/24/19 Rx Tablet] Metoprolol Succinate [Toprol XL 12.5 mg PO DAILY #30 tab.er.24h 05/24/19 Rx 25mg tablet] Nicotine [Nicoderm 21mg/24hr 14 mg TD DAILYP PRN #30 patch.td24 05/24/19 Rx patch] Ticagrelor [Brilinta 90mg Tablet] 90 mg PO BID #60 tab 05/24/19 Rx lisinopriL [Zestril 2.5mg Tablet] 2.5 mg PO DAILY #30 tab 05/24/19 Rx omeprazole 40 mg capsule,delayed 40 mg PO DAILY #30 cap 05/24/19 Rx release Prescriptions/Medication Reconciliation: New Nicotine [Nicoderm 21mg/24hr patch] 14 mg TD DAILYP PRN #30 patch.td24 PRN Reason: Nicotine Cravings Metoprolol Succinate [Toprol XL 25mg tablet] 12.5 mg PO DAILY #30 tab.er.24h lisinopriL [Zestril 2.5mg Tablet] 2.5 mg PO DAILY #30 tab Ticagrelor [Brilinta 90mg Tablet] 90 mg PO BID #60 tab Atorvastatin Calcium [Lipitor 40mg Tablet] 80 mg PO HS #30 tab Continued duloxetine 60 mg capsule,delayed release 60 mg PO HS 90 Days #90 alprazolam 0.25 mg tablet 0.25 mg PO HSP PRN 30 Days #30 PRN Reason: Anxiety Aspirin [Aspir 81] 81 mg PO HS Montelukast Sodium 10 mg PO HS Discontinued atorvastatin 10 mg tablet 10 mg PO HS 30 Days #30 No Action omeprazole 40 mg capsule,delayed release 40 mg PO DAILY #30 cap - Problem Reconciliation Problems Reviewed?: Yes
--- NOTE | 2019-05-24 21:41 | Electrocardiograph Report ---
APPROVED REPORT Exam: Resting ECG HR:78 bpm ECG Measurements Heart Rate 78 AXES NH 136 P 60 QRSd 80 QRS 65 QT 390 T52 QTc 444 <Conclusion> Normal sinus rhythm Nonspecific ST abnormality Abnormal ECG Electronically signed by : Bola Peñaloza, 05/24/2019 21:40:43
--- NOTE | 2019-05-25 16:54 | Cardiology Report ---
APPROVED REPORT EXAM: Comprehensive 2D, Doppler, and color-flow Echocardiogram Spaghetti Machine Operator: Liliana Call RVT Ht: 5 ft 4 in Wt: 132lbs BSA: 1.64 BP: 106/63 mmHg Indications: NSTEMI,SMOKER,HLD,HX EYE STROKE 2D Dimensions LVOT 2.09 cm (M/F) 1.5-2.5 M-Mode Dimensions RVDd 2.75 cm (0.9-2.6)LVDd 4.25 cm (3.5-5.7) LVDs 2.53 cm (3.5-5.7)IVSd 1.22 cm (0.6-1.1) PWd 0.50 cm (0.6-1.1)EF (Teich) 71.50% FS 40.50% EDV (Teich) 80.80 mL ESV (Teich) 23.00 mL LV Diastology E/A Ratio 0.80 Mitral Valve MV A Velocity 58.00 (40-130 cm/s) Left Ventricle Left atrium is normal size, left ventricle is normal size, there is mild qualitative concentric left ventricular hypertrophy, visually estimated ejection fraction 55% with no regional wall motion abnormality. Grade 1 diastolic dysfunction seen without tissue Doppler evidence of raise left atrial pressure. Right Ventricle Right atrium and right ventricular normal size and contractility. Aortic Valve Aortic valve is minimally thickened and fibrosed. There is no aortic stenosis aortic insufficiency. Mitral Valve Mitral valve is grossly normal, there is mild mitral regurgitation. Tricuspid Valve Tricuspid valve is grossly normal, there is mild tricuspid regurgitation, tricuspid regurgitation jet velocity is inadequate for calculation of the right ventricular systolic pressure. Pulmonic Valve Pulmonic valve is poorly visualized. Great Vessels Aortic root is normal size. Pericardium No significant pericardial effusion noted. Conclusion 1. Normal left ventricular size, preserved left ventricular systolic function, visually estimated ejection fraction 55% with no regional wall motion abnormality, grade 1 diastolic dysfunction seen without tissue Doppler evidence of raise left atrial pressure. 2. Mild mitral and tricuspid regurgitation. 3. No significant pericardial effusion noted. Electronically signed by : Elijah Macias, 05/25/2019 16:54:20
== END 2019-05-24 13:38 | disposition home or self-care (01) | DRG 247 ==
LOC: ER 07:18 → 2ND 10:59
PROVIDERS: ADMIT Family Medicine; ATTEND Family Medicine
CPT/HCPCS: 36415; 70460; 71020; 71046; 80048; 81001; 84484; 85007; 85025; 85347; 85378; 87086; 87275; 87276; 92941; 93005; 93306; 93458; 99152; 99153; 99285; C1725; C1769; C1876; C9606; J1644; Q9967

== ENCOUNTER → 2019-05-29 08:40 | Outpatient (CLI) | payer BC, SELFPAY ==
[2019-05-29 09:21] LABS: Basophils # 0.1 K/mm3 (0-0.2); Basophils % 0.7 % (0.1-2.0); Eosinophils # 0.3 K/mm3 (0.0-0.4); Eosinophils % 3.9 % (0.1-12.0); Hematocrit 44.1 % (37.0-47.0); Hemoglobin 14.8 g/dL (12.2-16.2); Lymphocytes # 1.8 K/mm3 (0.7-4.5); Lymphocytes % 26.6 % (10-50); Mean Corpuscular HGB Conc 33.5 g/dL (31.8-35.4); Mean Corpuscular Hemoglobin 31.2 pg (27.0-31.2); Mean Corpuscular Volume 93.2 fl (81-99); Mean Platelet Volume 8.4 fl (7.4-10.4); Monocytes # 0.4 K/mm3 (0.1-1.0); Monocytes % 5.6 % (1.7-9.3); Neutrophils # 4.3 K/mm3 (1.8-7.8); Neutrophils % 63.1 % (37.0-80.0); Platelet Count 295 K/mm3 (142-424); Red Blood Count 4.73 M/mm3 (4.20-5.40); Red Cell Distribution Width 13.1 % (11.5-17.5); White Blood Count 6.8 K/mm3 (4.8-10.8)
[2019-05-29 09:46] LABS: Chloride 107 mmol/L (98-107); Potassium 3.9 mmoL/L (3.5-5.1); Sodium 137 mmol/L (136-145)
[2019-05-29 09:49] LABS: Anion Gap 11.9 mEq/L (5-15); Blood Urea Nitrogen 10 mg/dl (7-17); Calcium 9.4 mg/dl (8.4-10.2); Carbon Dioxide 22 mmol/L (22.0-30.0); Estimated Glomerular Filt Rate 74 ml/min (>60); GFR (African American) 90 ML/MIN (>60); Glucose 106 mg/dl (74-100)
== END ==
PROVIDERS: Visit Provider Internal Medicine
DX: I25.10 Atherosclerotic heart disease of native coronary artery without angina pectoris (principal)
CPT/HCPCS: 36415; 80048; 85025

== ENCOUNTER → 2019-06-26 14:26 | Outpatient (CLI) | payer BC, SELFPAY ==
[2019-06-26 15:00] LABS: Basophils # 0.1 K/mm3 (0-0.2); Basophils % 0.6 % (0.1-2.0); Eosinophils # 0.3 K/mm3 (0.0-0.4); Eosinophils % 3.5 % (0.1-12.0); Hematocrit 42.9 % (37.0-47.0); Hemoglobin 14.3 g/dL (12.2-16.2); Lymphocytes # 2.1 K/mm3 (0.7-4.5); Lymphocytes % 23.1 % (10-50); Mean Corpuscular HGB Conc 33.5 g/dL (31.8-35.4); Mean Corpuscular Hemoglobin 31.5 pg (27.0-31.2); Mean Corpuscular Volume 94.2 fl (81-99); Mean Platelet Volume 9.4 fl (7.4-10.4); Monocytes # 0.4 K/mm3 (0.1-1.0); Monocytes % 4.7 % (1.7-9.3); Neutrophils # 6.2 K/mm3 (1.8-7.8); Neutrophils % 68.2 % (37.0-80.0); Platelet Count 257 K/mm3 (142-424); Red Blood Count 4.55 M/mm3 (4.20-5.40); Red Cell Distribution Width 13.2 % (11.5-17.5); White Blood Count 9.1 K/mm3 (4.8-10.8)
[2019-06-26 15:50] LABS: Alanine Aminotransferase 20 U/L (12-78); Albumin Level 4.2 g/dl (3.5-5.0); Alkaline Phosphatase 80 U/L (38-126); Anion Gap 12.3 mEq/L (5-15); Aspartate Amino Transferase 26 U/L (14-36); Bilirubin,Indirect 0.3 mg/dL (0.0-0.9); Bilirubin,Total 0.3 mg/dl (0.2-1.3); Bilirubin,Unconjugated 0.3 mg/dL (0.0-1.1); Blood Urea Nitrogen 13 mg/dl (7-17); Calcium 9.8 mg/dl (8.4-10.2); Carbon Dioxide 23 mmol/L (22.0-30.0); Chloride 104 mmol/L (98-107); Chol/HDL Ratio 2.1 (1-3.5); Cholesterol 139 mg/dl (140-200); Estimated Glomerular Filt Rate 52 ml/min (>60); GFR (African American) 62 ML/MIN (>60); Glucose 99 mg/dl (74-100); HDL Cholesterol 65 mg/dl (40-60); Potassium 4.3 mmoL/L (3.5-5.1); Sodium 135 mmol/L (136-145); Total Protein,Serum 6.6 g/dl (6.3-8.2); Triglycerides 118 mg/dl (30-150); VLDL Cholesterol 24 mg/dL (0-40)
[2019-06-26 16:01] LABS: Direct LDL Cholesterol 78.79 mg/dL (100-129)
[2019-06-26 16:07] LABS: Free T4 (Free Thyroxine) 0.96 ng/dl (0.78-2.19)
[2019-06-26 16:21] LABS: Thyroid Stimulating Hormone 2.75 uIU/mL (0.465-4.68)
== END ==
PROVIDERS: Visit Provider Nurse Practitioner Family
DX: I20.9 Angina pectoris, unspecified (principal); I63.9 Cerebral infarction, unspecified; E78.5 Hyperlipidemia, unspecified; Z72.0 Tobacco use
CPT/HCPCS: 36415; 80048; 80061; 80076; 84439; 84443; 85025

== ENCOUNTER 2019-08-01 12:55 | Outpatient (RCR) | payer BC, SELFPAY | END 2019-12-07 13:42 | disposition home or self-care (01) | LOC: PT 12:55 | PROVIDERS: Visit Provider Nurse Practitioner Family | DX: I25.118 Atherosclerotic heart disease of native coronary artery with other forms of angina pectoris (principal) | CPT/HCPCS: 93798 ==

== ENCOUNTER 2019-08-10 16:59 | Emergency (ER) | payer BC, SELFPAY ==
[2019-08-10] VITALS (10 sets, daily range): BP systolic 93–154; BP diastolic 60–85; PULSE 49–66; RESP 16–18; TEMP 36.6–36.7; O2SAT 95–96; BMI 24.9
--- NOTE | 2019-08-10 16:57 | ECG_ITS ---
APPROVED REPORT Exam: Resting ECG HR:64 bpm ECG Measurements Heart Rate [address] 144 P 59 QRSd 80 QRS 66 QT 440 T 81 QTc 453 <Conclusion> Normal sinus rhythm Left atrial abnormality Nonspecific ST and T wave abnormality Abnormal ECG Electronically signed by : Bola Peñaloza, 08/11/2019 14:08:28
--- NOTE | 2019-08-10 17:03 | XR_ITS ---
PROCEDURE: XR CHEST 2V CLINICAL HISTORY: CP Chest pain, smoker COMPARISON: XR CHEST 2V from 05/22/2019 FINDINGS: The cardiomediastinal silhouette and pulmonary vascularity are within normal limits. The lungs are clear without infiltrates, suspicious nodules, or pleural effusions. No acute bony abnormalities. IMPRESSION: No acute findings. Dictated by: Elie Castillo MD 08/10/2019 18:42 Electronically signed by Elie Castillo MD in [place] 08/10/2019 18:42
--- NOTE | 2019-08-10 17:03 | HMH.EDGENADL ---
ED Disposition Clinical Impression: Unstable angina Disposition: Xfer Short-Term Hosp Condition on Discharge: Fair Referrals: Provider,Referral, [Primary Care Provider] - Forms: Transfer Record - ED - Critical Care Critical Care Time: Yes Attestation: On , the high probability of a clinically significant, sudden or life threatening deterioration of the following system(s) required my full and direct attention, intervention and personal management. The time I documented below is in addition to time spent performing reported procedures but includes the following listed in this critical care notation. Vital system(s) involved:: Circulatory Failure My critical care processes included: Assessment & monitoring of V/S, Initial and Re-exams, Data Review/Interpretation, Coordinating Care, Medication Orders and management, Documentation Medical Decision Making - Jonathon Inquiry Pt receiving controlled substance: No Vital Signs: 08/10/19 16:59 08/10/19 17:50 08/10/19 17:55 Temperature 98 F Temperature Source Oral Pulse Rate [Right] 64 58 L 56 L Respiratory Rate 18 Blood Pressure [Right Arm] 154/85 H 122/70 106/72 L Blood Pressure Mean [Right Arm] 108 87 83 Blood Pressure Source [Right Arm] Blood Pressure Position [Right Arm] Sitting Sitting 02 Sat by Pulse Oximetry 96 Oxygen Delivery Method 08/10/19 18:13 08/10/19 18:30 08/10/19 18:33 Temperature Temperature Source Pulse Rate [Right] 66 62 58 L Respiratory Rate Blood Pressure [Right Arm] 99/66 L 93/60 L 97/65 L Blood Pressure Mean [Right Arm] 77 71 75 Blood Pressure Source [Right Arm] Blood Pressure Position [Right Arm] Sitting Sitting 02 Sat by Pulse Oximetry Oxygen Delivery Method 08/10/19 18:40 08/10/19 19:15 08/10/19 19:51 Temperature Temperature Source Pulse Rate [Right] 58 L 49 L 50 L Respiratory Rate 16 Blood Pressure [Right Arm] 110/71 118/61 108/66 L Blood Pressure Mean [Right Arm] 84 80 80 Blood Pressure Source [Right Arm] Automatic Cuff Blood Pressure Position [Right Arm] Sitting 02 Sat by Pulse Oximetry 95 Oxygen Delivery Method Room Air - Lab Data Lab Results 08/10/19 17:00: WBC 10.1, RBC 4.87, Hgb 15.2, Hct 45.7, MCV 93.9, MCH 31.2, MCHC 33.3, RDW 13.1, Plt Count 291, MPV 9.1, Neut % (Auto) 46.8, Lymph % (Auto) 41.6, [place] % (Auto) 6.1, Eos % (Auto) 4.3, Baso % (Auto) 1.1, Neut # (Auto) 4.7, Lymph # (Auto) 4.2, [place] # (Auto) 0.6, Eos # (Auto) 0.4, Baso # (Auto) 0.1 08/10/19 17:00: Sodium 135 L, Potassium 3.6, Chloride 104, Carbon Dioxide 25, Anion Gap 9.6, BUN 13, Creatinine 0.80, Estimated Creat Clear 82, Estimated GFR 74, Est GFR ( Amer) 90, Glucose 106 H, Calcium 9.9, Troponin I < 0.01 08/10/19 17:03: PT 10.8, INR 1.05 08/10/19 17:03: APTT 24.7 Result diagrams: 08/10/19 17:00 08/10/19 17:00 Orders (Tests/Meds): ED MEDICATIONS Generic Name Dose Route Start Last Admin Trade Name Freq PRN Reason Stop Dose Admin Sodium Chloride 1,000 mls @ 999 mls/hr 08/10/19 18:30 08/10/19 18:31 Sod Chlor 0.9% 1000ml Bag IV 08/10/19 19:30 999 mls/hr .Q1H1M SHEILA Administration Heparin Sodium/Dextrose 500 mls @ 22 mls/hr 08/10/19 19:15 08/10/19 19:09 Heparin 25,000 Units In D5w 500ml Premix IV 09/09/19 19:14 22 mls/hr .[id number] SHEILA Administration 1,100 UNITS/HR Miscellaneous 1 each 08/10/19 19:15 08/10/19 19:06 Heparin Drip Consult Request * 09/09/19 19:14 1 each CONSULT PHARMACY SHEILA Administration Nitroglycerin 0.4 mg 08/10/19 17:47 08/10/19 17:58 Nitrostat 0.4mg Sl Tablet SL 09/09/19 17:46 0.4 mg Q5MINP PRN Administration Chest Pain Discontinued Medications Generic Name Dose Route Start Last Admin Trade Name Freq PRN Reason Stop Dose Admin Aspirin 243 mg 08/10/19 17:03 08/10/19 17:06 Aspirin 81mg Chewable Tablet PO 08/10/19 17:04 243 mg ONCE ONE Administration Heparin Sodium (Porcine) 4,000 unit 08/10/19 18:
[2019-08-10 17:10] LABS: Basophils # 0.1 K/mm3 (0-0.2); Basophils % 1.1 % (0.1-2.0); Eosinophils # 0.4 K/mm3 (0.0-0.4); Eosinophils % 4.3 % (0.1-12.0); Hematocrit 45.7 % (37.0-47.0); Hemoglobin 15.2 g/dL (12.2-16.2); Lymphocytes # 4.2 K/mm3 (0.7-4.5); Lymphocytes % 41.6 % (10-50); Mean Corpuscular HGB Conc 33.3 g/dL (31.8-35.4); Mean Corpuscular Hemoglobin 31.2 pg (27.0-31.2); Mean Corpuscular Volume 93.9 fl (81-99); Mean Platelet Volume 9.1 fl (7.4-10.4); Monocytes # 0.6 K/mm3 (0.1-1.0); Monocytes % 6.1 % (1.7-9.3); Neutrophils # 4.7 K/mm3 (1.8-7.8); Neutrophils % 46.8 % (37.0-80.0); Platelet Count 291 K/mm3 (142-424); Red Blood Count 4.87 M/mm3 (4.20-5.40); Red Cell Distribution Width 13.1 % (11.5-17.5); White Blood Count 10.1 K/mm3 (4.8-10.8)
[2019-08-10 17:11] LABS: Chloride 104 mmol/L (98-107); Potassium 3.6 mmoL/L (3.5-5.1); Sodium 135 mmol/L (136-145)
[2019-08-10 17:14] LABS: Anion Gap 9.6 mEq/L (5-15); Blood Urea Nitrogen 13 mg/dl (7-17); Carbon Dioxide 25 mmol/L (22.0-30.0); Creatinine Clearance Estimated 82 mL/min (50-200); Estimated Glomerular Filt Rate 74 ml/min (>60); GFR (African American) 90 ML/MIN (>60)
[2019-08-10 17:15] LABS: Calcium 9.9 mg/dl (8.4-10.2); Glucose 106 mg/dl (74-100)
[2019-08-10 17:28] LABS: Troponin I < 0.01 ng/ml (0.00-0.034)
--- NOTE | 2019-08-10 17:42 | PC.NURSE ---
dr licea speaking with dr christianson ?? from [facility] .
--- NOTE | 2019-08-10 18:14 | PC.NURSE ---
3rd nitro held due to b/p
--- NOTE | 2019-08-10 18:40 | PC.NURSE ---
message left for Dr Suggs at [facility]
--- NOTE | 2019-08-10 18:44 | PC.NURSE ---
DR MANLEY SPEAKING WITH DR BRINK FROM [facility]
--- NOTE | 2019-08-10 18:45 | PC.NURSE ---
paged pharmacy for heparin consult
[2019-08-10 19:33] LABS: Activated Partial Thrombo Time 24.7 seconds (23.6-34.0); INR 1.05 (0.9-1.1); Prothrombin Time 10.8 seconds (9.4-11.8)
[2019-08-10 20:27] LABS: Troponin I 0.16 ng/ml (0.00-0.034)
--- NOTE | 2019-08-10 21:38 | PC.NURSE ---
Ricky here loading patient for transfer to [facility]
== END 2019-08-10 21:41 | disposition short-term general hospital (02) ==
PROVIDERS: Emergency Provider Emergency Medicine
DX: I20.0 Unstable angina (principal); I25.10 Atherosclerotic heart disease of native coronary artery without angina pectoris; I10 Essential (primary) hypertension; I25.2 Old myocardial infarction; Z86.73 Personal history of transient ischemic attack (TIA), and cerebral infarction without residual deficits; E78.5 Hyperlipidemia, unspecified; F17.210 Nicotine dependence, cigarettes, uncomplicated; Z88.2 Allergy status to sulfonamides; Z79.899 Other long term (current) drug therapy
CPT/HCPCS: 71046; 80048; 84484; 85025; 85610; 85730; 93005; 96365; 96367; 96375; 99285

== ENCOUNTER → 2020-03-16 11:54 | Outpatient (CLI) | payer BC, SELFPAY ==
[2020-03-16 15:09] LABS: Coronavirus 19 IgG Antibody Negative (Negative); Coronavirus 19 IgM Antibody Negative (Negative)
== END ==
PROVIDERS: Visit Provider Internal Medicine Gastroenterology
DX: Z01.812 Encounter for preprocedural laboratory examination (principal); Z11.52 Encounter for screening for COVID-19; Z12.11 Encounter for screening for malignant neoplasm of colon
CPT/HCPCS: 36415; 86328

== ENCOUNTER 2020-03-18 11:27 | Day surgery (SDC) | payer BC, SELFPAY ==
[2020-03-12 11:24] VITALS: BMI 24.9
[2020-03-18] VITALS (7 sets, daily range): BP systolic 83–134; BP diastolic 62–84; PULSE 58–72; RESP 18–20; TEMP 36.3–37.1; O2SAT 95–99
--- NOTE | 2020-03-18 12:54 | HMH.ANESCL ---
[facility] Anesthesia Checklist - Patient Identification Patient Identification: Arm Band - Structural Data Admitted From: Home Planned Operative Procedure/s: general Consent for Planned Operative Procedure(s) Verified: Yes Verified Documents: Surgical Consent - Additional verifications Anesthesia Reactions: No - Airway Assessment C-Spine Mobility Assessed: No TMJ Mobility Assessed: No - Neurological Assessment Level of Consciousness: Awake Hx Seizures: No Numbness or tingling in extremities: No - Genitourinary Assessment Voided operations intelligence superintendent to O.R.: No - Anesthesia Plan ASA Class: II Anesthesia Type: General [facility] History I have reviewed the patient's past medical history: No Medical History: Reports:: Aneurysm, Coronary Artery Disease, Cerebrovascular Accident, Hyperlipidemia, Hypertension Denies:: Cancer, Diabetes Mellitus Type 1, Diabetes Mellitus Type 2, Internal Pacemaker, Lung Disease, MRSA, Seizures *Have you ever received a pneumonia vaccine?: No *Have you received a flu vaccine this season?: No Other Medical History: Reports: Other Anesthesia experience/problems:: non Other Surgeries: Yes: No Previous Surgery, Cardiac Catheterization, Coronary Stent. No: Pacemaker Amputation: No Fractures: No - *Social History Smoking Status: Current every day smoker Tobacco Type: cigarettes # Packs/Day (cigarettes): 1 Alcohol Intake: never Alcohol Intake Frequency:: a few times a month Substance Use Type: denies use *Occupational Status:: retired Housing: house Household Members: spouse *Travel in the last 8 weeks: None Family Hx:: Cancer, Diabetes, Heart Attack, Hyperlipidemia, Hypertension, Stroke, Thyroid Disorder
--- NOTE | 2020-03-18 13:22 | P.PCN_ITS ---
[facility] Procedure Note Procedure Note:: Colonoscopy Procedure Report: Colonoscopy with cold snare polypectomy Endoscopist: Hemant De La Torre II, MD Referring physician: Orville Choudhury MD ([facility]) Date of Procedure: March 18, 2020 Equipment: Olympus 180 variable stiffness pediatric colonoscope Sedation: MAC sedation Indication: Mrs. Couch is a 54-year-old female who is here for follow-up high risk screening/surveillance colonoscopy secondary to a family history of colon cancer (sister with colon cancer in her early 60s) and a personal history of adenomatous colon polyps. The patient did have a colonoscopy in January 2018 and had 11 colon polyps removed (tubular adenomas x7, serrated adenomas x2 and hyperplastic polyps x2). The patient reports no abdominal pain, weight loss, change in her bowel habits or rectal bleeding. Procedure: Prior to the procedure, a history and physical exam was performed, and patient's medications and allergies were reviewed. The risks, benefits and alternatives of the sedation and procedure were discussed with the patient. All questions were answered and informed consent was obtained. The patient was brought to the procedure room. Patient identification and proposed procedure were verified by the physician and the nurse. The patient was placed in a left lateral decubitus position and the scope was passed under direct vision. Throughout the procedure, the patient's blood pressure, pulse, and oxygen saturations were monitored continuously. The colonoscopy was accomplished without difficulty. The patient tolerated the procedure well. Findings: On digital rectal examination there was normal rectal tone. There were no external hemorrhoids. The colonoscope was introduced through the anal canal to the rectum and advanced to the cecum. The ileocecal valve and appendiceal orifice were identified. The scope was advanced a short distance into the ileum which appeared grossly normal. The scope was then withdrawn into the colon. There were a total of 8 colon polyps (cecum x3 (all 3 mm), ascending x4 (3, 3, 4 and 4 mm) and ascending x1 (6 mm)) which were all removed via cold snare polypectomy. There were a few scattered diverticuli throughout the descending and sigmoid colon (LEFT colon). The rectum itself was normal. Upon retroflexion within the rectum there were grade 1 internal hemorrhoids. The preparation was excellent throughout with [place] Preparation Score of 9. The cecal time was 15 minutes. Impression: 1. Colonic polyps x8 2. Mild left-sided diverticulosis 3. Grade 1 internal hemorrhoids Plan: I will follow up the polyp pathology and recommend repeat colonoscopy again in 2-3 years based upon the patient's family history, prior adenomatous polyps and present polyp histology. I would encourage fiber supplementation on a long-term daily maintenance basis.
== END 2020-03-18 14:24 | disposition home or self-care (01) ==
PROVIDERS: PCP Family Medicine; Visit Provider Internal Medicine Gastroenterology
PROC: 0DJD8ZZ Inspection of Lower Intestinal Tract, Via Natural or Artificial Opening Endoscopic (ICD-10-PCS; CPT 45378; principal; 2020-03-18 14:30)
DX: Z12.11 Encounter for screening for malignant neoplasm of colon (principal); Z80.0 Family history of malignant neoplasm of digestive organs; Z86.010 Personal history of colon polyps; K63.5 Polyp of colon; K57.30 Diverticulosis of large intestine without perforation or abscess without bleeding; K64.0 First degree hemorrhoids; I25.10 Atherosclerotic heart disease of native coronary artery without angina pectoris; E78.5 Hyperlipidemia, unspecified; I10 Essential (primary) hypertension; Z86.73 Personal history of transient ischemic attack (TIA), and cerebral infarction without residual deficits; Z72.0 Tobacco use; Z82.3 Family history of stroke
CPT/HCPCS: 45385

== ENCOUNTER 2022-12-07 14:00 | Outpatient (RCR) | payer BC, SELFPAY | END 2022-12-07 14:05 | disposition home or self-care (01) | LOC: OT 14:00 | PROVIDERS: PCP Family Medicine; Visit Provider Family Medicine | DX: M25.521 Pain in right elbow (principal); M25.621 Stiffness of right elbow, not elsewhere classified | CPT/HCPCS: 97010; 97014; 97035; 97110; 97140; 97165; G0283 ==

== ENCOUNTER 2023-01-01 15:00 | Outpatient (RCR) | payer BC, SELFPAY | END 2023-01-01 16:00 | disposition home or self-care (01) | LOC: PT 15:00 | PROVIDERS: PCP Family Medicine; Visit Provider Nurse Practitioner Family | DX: M25.551 Pain in right hip (principal) | CPT/HCPCS: 97163 ==

== ENCOUNTER 2023-04-08 13:29 | Outpatient (CLI) | payer MEDICARE, BC, SELFPAY ==
[2023-04-14 14:15] LABS: Pancreatic Elastase, Fecal 129 (>200)
== END 2023-04-08 23:59 ==
PROVIDERS: PCP Family Medicine; Visit Provider Internal Medicine Gastroenterology
DX: R10.84 Generalized abdominal pain (principal); R14.0 Abdominal distension (gaseous); R19.5 Other fecal abnormalities
CPT/HCPCS: 82656

== ENCOUNTER 2023-05-20 07:55 | Outpatient (CLI) | payer MEDICARE, BC, SELFPAY ==
--- NOTE | 2023-05-20 08:02 | CT_ITS ---
FINAL REPORT TECHNIQUE: After the administration of intravenous contrast, axial images were obtained through the abdomen and pelvis by computed tomography. Oral contrast was also administered. This study was performed with technique to keep radiation doses as low as reasonably achievable, (ALARA). Individualized dose reduction techniques using automated exposure control or adjustment of the MA and/or KV according to the patient's size were employed. CLINICAL HISTORY: PANCREATIC INSUFFICIENCY FINDINGS: Abdomen: Several nodules are seen in the right lung base measuring up to 7 mm. Recommend 6-month follow-up chest CT.. The liver is normal in size and attenuation. The spleen is unremarkable. Pancreas is normal. The adrenals are normal. The pancreas is unremarkable. The kidneys enhance appropriately. The aorta is normal in caliber. There is no free fluid or adenopathy. Pelvis: The appendix is normal. The urinary bladder is unremarkable. There is no free fluid or adenopathy. IMPRESSION: No acute intra-abdominal process. Several pulmonary nodules at the right lung base measuring up to 7 mm. Recommend 6-month follow-up chest CT. Reviewed, Interpreted and Dictated by Vinayak Gould III, MD Transcribed by Jenni Delgado Authenticated and [facility]
[2023-05-20] MEDS: SODIUM CHLORIDE 0.9% 10ML SYR (RAD ONLY) 10 ML IV (08:24)
[2023-05-20] MEDS: BARIUM SULFATE(READI-CAT2);450ML BOTTLE 450 ML PO (08:24)
[2023-05-20] MEDS: IOPAMIDOL-370 (76%);100ML BOTTLE 75 ML IV (08:24)
== END 2023-05-20 23:59 ==
LOC: RAD 07:56
PROVIDERS: PCP Family Medicine; Visit Provider Internal Medicine Gastroenterology
DX: K86.81 Exocrine pancreatic insufficiency (principal)
CPT/HCPCS: 74177; Q9967